=== PATIENT | male | born 1985 | race Caucasian/White ===

== ENCOUNTER 2017-05-24 18:58 | Emergency (ER) | payer OTHER ==
[~2017-05-24] VITALS: Ht 177.8 cm; Wt 56.7 kg
[~2017-05-24 18:58] MED LIST: AMOX-277 PO; MECL-87 PO; PRO125RS PO
[2017-05-24 19:14] VITALS: BP 141/84
[2017-05-24] MEDS ORDERED: IBUPROFEN 600 MG TAB PO ONE (21:00)
[2017-05-24] MEDS ORDERED: CYCLOBENZAPRINE HCL 10 MG TAB PO ONE (21:00)
== END 2017-05-24 21:21 | disposition home or self-care (01) ==
LOC: ER 19:08
DX: S29.019A Strain of muscle and tendon of unspecified wall of thorax, initial encounter (principal); K21.9 Gastro-esophageal reflux disease without esophagitis; F17.210 Nicotine dependence, cigarettes, uncomplicated; F12.10 Cannabis abuse, uncomplicated; X58.XXXA Exposure to other specified factors, initial encounter; Y93.89 Activity, other specified; Y99.8 Other external cause status; Y92.89 Other specified places as the place of occurrence of the external cause
CPT/HCPCS: 72080

== ENCOUNTER 2018-06-12 11:22 | Emergency (ER) | payer OTHER ==
[~2018-06-12] VITALS: Ht 175.3 cm; Wt 50.8 kg
[2018-06-12 11:43] VITALS: BP 133/93
[2018-06-12] MEDS ORDERED: KETOROLAC TROMETH 60MG/2ML VIAL IM ONE (12:15)
[2018-06-12] MEDS ORDERED: KETOROLAC TROMETH 30 MG/ML 1ML VIAL IM ONE (12:15)
== END 2018-06-12 12:40 | disposition home or self-care (01) ==
LOC: ER 11:25
DX: K08.89 Other specified disorders of teeth and supporting structures (principal); G89.29 Other chronic pain; F12.90 Cannabis use, unspecified, uncomplicated; F17.210 Nicotine dependence, cigarettes, uncomplicated
CPT/HCPCS: 96372; 99283; J1885

== ENCOUNTER 2022-03-25 11:48 | Emergency (ER) | payer MEDICAID ==
[~2022-03-25] VITALS: Ht 175.3 cm; Wt 57.0 kg
[~2022-03-25 11:48] MED LIST changes: -MECL-87 PO; +MECL25TA18 PO
[2022-03-25 13:35] VITALS: BP 123/86
[2022-03-25] MEDS ORDERED: IBUP600T27 PO (14:00)
== END 2022-03-25 14:05 | disposition home or self-care (01) ==
LOC: ER 11:48
DX: S80.11XA Contusion of right lower leg, initial encounter (principal); K21.9 Gastro-esophageal reflux disease without esophagitis; F17.210 Nicotine dependence, cigarettes, uncomplicated; Z79.899 Other long term (current) drug therapy; W22.8XXA Striking against or struck by other objects, initial encounter; Y93.89 Activity, other specified; Y92.89 Other specified places as the place of occurrence of the external cause; Y99.8 Other external cause status
CPT/HCPCS: 73590

== ENCOUNTER 2022-07-23 15:16 | Emergency (ER) | payer MEDICAID ==
[~2022-07-23] VITALS: Ht 175.3 cm; Wt 55.5 kg
[~2022-07-23 15:16] MED LIST changes: +IBUP600T27 PO
[2022-07-23 16:16] VITALS: BP 136/76
[2022-07-23] MEDS ORDERED: LIDOCAINE 1% HCL (LOCAL ANESTH.) INJ 20ML MDV IJ ONE (17:00)
== END 2022-07-23 17:31 | disposition home or self-care (01) ==
LOC: ER 15:16
DX: S61.210A Laceration without foreign body of right index finger without damage to nail, initial encounter (principal); K21.9 Gastro-esophageal reflux disease without esophagitis; F17.210 Nicotine dependence, cigarettes, uncomplicated; F12.10 Cannabis abuse, uncomplicated; Z88.6 Allergy status to analgesic agent; W26.8XXA Contact with other sharp object(s), not elsewhere classified, initial encounter; Y93.89 Activity, other specified; Y92.89 Other specified places as the place of occurrence of the external cause; Y99.8 Other external cause status
CPT/HCPCS: 12001

== ENCOUNTER 2022-07-30 08:57 | Emergency (ER) | payer MEDICAID ==
[~2022-07-30] VITALS: Ht 172.7 cm; Wt 54.8 kg
[2022-07-30 09:29] VITALS: BP 130/83
== END 2022-07-30 21:14 | disposition home or self-care (01) ==
LOC: ER 09:00
DX: S61.210D Laceration without foreign body of right index finger without damage to nail, subsequent encounter (principal); K21.9 Gastro-esophageal reflux disease without esophagitis; F17.210 Nicotine dependence, cigarettes, uncomplicated; F12.90 Cannabis use, unspecified, uncomplicated; Z79.899 Other long term (current) drug therapy; X58.XXXD Exposure to other specified factors, subsequent encounter

== ENCOUNTER 2025-01-03 06:47 | Emergency (ER) | payer MEDICAID ==
[~2025-01-03] VITALS: Ht 175.3 cm; Wt 55.0 kg
[~2025-01-03 06:47] MED LIST changes: -AMOX-277 PO; +AMOX875T4 PO; +IBUP-1454 PO; -IBUP600T27 PO; +MECL-90 PO; -MECL25TA18 PO
[2025-01-03 07:28] VITALS: BP 129/82; PULSE 79; RESP 18; TEMP 99.4; O2SAT 97
[2025-01-03] MEDS ORDERED: IBUP1TAB5 PO (08:04)
[2025-01-03] MEDS ORDERED: PROM1SOL4 PO (08:04)
[2025-01-03] MEDS ORDERED: BENZ100C97 PO (08:04)
[2025-01-03] MEDS ORDERED: AZIT-43 PO (08:04)
--- NOTE | 2025-01-03 08:04 | ED.PDOC ---
Eye-HPI HPI Comments A 39 year old male presents to the ED c/o flu-like symptoms. Patient states he has been experiencing a dry cough, chills, body aches, and sore throat for the past 4 days. Patient reports he has tried [id number] medications with no improvement in his symptoms.Denies fever, SOB, chest pain, abdominal pain, nausea, vomiting, diarrhea, dizziness, vision changes, or numbness/tingling of extremities. No other symptoms or modifying factors reported at this time. Patient is alert and oriented x4 and has a stable gait. Chief Complaint: Sore Throat Time Seen by MD: 06:57 Primary Care Provider: ? Reviewed Notes: Nurses Notes, Medications, Allergies Allergies: Coded Allergies: NO KNOWN ALLERGIES (Unverified , 07/23/22) Home Meds Active Scripts Ibuprofen Micronized (Ibuprofen) 600 Mg Tab, 600 MG PO Q8HPRN PRN for 10 Days, #30 TAB 0 Refills Prov:JATIN MEJIA NP 01/03/25 Promethazine-Dm (Promethazine Dm 6.25-15 mg/5Ml) 1 Oxana Oxana, 5 ML PO TIDPRN PRN for 10 Days, #150 ML 0 Refills Prov:JATIN MEJIA EXTERNAL RELATIONS MANAGER 01/03/25 Benzonatate (Benzonatate) 100 Mg Cap, 1 CAP PO TID for 10 Days, #30 CAP 0 Refills Prov:JATIN MEJIA EXTERNAL RELATIONS MANAGER 01/03/25 Azithromycin (Azithromycin) 250 Mg Tab, 250 MG PO DAILY MDD 500 for 5 Days, #6 TAB 0 Refills 2 TABLETS ORALLY ON DAY ONE, THEN 1 TABLET ORALLY DAILY FOR 4 DAYS Prov:JATIN MEJIA NP 01/03/25 Ibuprofen (Ibuprofen) 600 Mg Tab, 600 MG PO TID, #30 TAB Prov:SURAJ ROSALES 03/25/22 Reported Medications Meclizine Hcl (Meclizine Hcl) 25 Mg Tab, 25 MG PO, #30 08/22/14 Promethazine Hcl (Promethegan) 12.5 Mg Sup, 12.5 MG PO Q6HP PRN for FOR COUGH, #180 08/22/14 Amoxicillin & Pot Clavulanate (Amoxicillin/Potassium Cla) 875 Mg Tab, 875 MG PO BID, #20 08/22/14 Information Source: Patient Mode of Arrival: Ambulatory Timing: Days Duration: Since onset, Days Prehospital treatment: None Quality: Pain, Red Lids: Normal Conjunctiva: Normal Cornea: Normal Pupils: Normal EOM: Normal Fundus: Normal Slit lamp exam: Normal Anterior chamber: Normal Mouth Location: Pharynx Mouth: Normal ENT Ear Exam: Normal, Normal, Normal Nose: Normal Sinuses: Normal Oropharynx: Red Onset: Spontaneous Throat Exposed to: None History of: None Last Tetanus: Unknown Modifying factors: Nothing Associated signs and symptoms: Chills, Nasal Symptoms, Sore Throat Past Medical History PAST MEDICAL HISTORY: GERD, PUD Surgical History: Denies all surgeries Family History Family History: Reviewed,noncontributory to illness Social History Smoker: Cigarettes, Less Than 1 Pack/Day Alcohol: Occasionally Drugs: Marijuana Lives In: Home Constitutional: reports: chills, fatigue; denies: diaphoresis, fever, malaise, sweats, weakness, others EENTM: reports: nose congestion, throat pain; denies: blurred vision, double vision, ear bleeding, ear discharge, ear drainage, ear pain, ear ringing, eye pain, eye redness, hearing loss, mouth pain, mouth swelling, nasal discharge, nose bleeding, nose pain, photophobia, tearing, throat swelling, voice changes, others Respiratory: reports: cough; denies: hemoptysis, orthopnea, SOB at rest, shortness of breath, SOB with excertion, stridor, wheezing, others Cardiovascular: denies: chest pain, dizzy spells, diaphoresis, Dyspnea on exertion, edema, irregular heart beat, left arm pain, lightheadedness, palpitations, PND, syncope, others Gastrointestinal: denies: abdomen distended, abdominal pain, blood streaked bowels, constipated, diarrhea, dysphagia, difficulty swallowing, hematemesis, melena, nausea, poor appetite, poor fluid intake, rectal bleeding, rectal pain, vomiting, others Genitourinary: denies: burning, dysuria, flank pain, frequency, hematuria, incontinence, penile discharge, penile sore, pain, testicle pain, testicle swelling, urgency, others Neurological: denies: dizziness, fainting, headache, left sided numbness, left sided weakness, numbness, paresthesia, pre-existing deficit, right sided numbness, right sided weakness, seizure, speech problems, tingling, tremors, weakness, others Musculoskeletal: reports: muscle pain; denies: back pain, gout, joint pain, joint swelling, muscle stiffness, neck pain, others Integumetry: denies: bruises, change in color, change in hair/nails, dryness, laceration, lesions, lumps, rash, wounds, others Allergic/Immunocompromised: denies: Difficulty Healing, Frequent Infections, Hives, Itching, others Hematologic/Lymphatic: denies: anemia, blood clots, easy bleeding, easy bruising, swollen glands, others Endocrine: denies: excessive hunger, excessive sweating, excessive thirst, excessive urination, flushing, intolerance to cold, intolerance to heat, unexplained weight gain, unexplained weight loss, others Psychiatric: denies: anxiety, bipolar disorder, depression, hopeless, panic disorder, schizophrenia, sleepless, suicidal, others All Other Systems: Reviewed and Negative Physical Exam General Appearance: No Apparent Distress, Normal HEENT: Pharyngeal Erythema, TMs Normal, Other (MMM, uvuala mildine, no airway obstruction, no drooling, Bilateral tonsils 1+) Neck: Full Range of Motion, Non-Tender, Normal, Normal Inspection Respiratory: Chest Non-Tender, Lungs Clear, No Accessory Muscle Use, No Respiratory Distress, Normal Breath Sounds Cardiovascular: No Edema, No JVD, No Murmur, No Gallop, Normal Peripheral Pulses, Regular Rate/Rhythm Breast Exam: Deferred Gastrointestinal: No Organomegaly, Non Tender, No Pulsatile Mass, Normal Bowel Sounds, Soft Genitalia: Deferred Pelvic: Deferred Rectal: Deferred Extremities: No calf tenderness, Normal capillary refill, Normal inspection, Normal range of motion, Non-tender, No pedal edema Musculoskeletal : Apperance: Normal Neurologic: Alert, project development engineer II-XII nml as Tested, No Motor Deficits, Normal Affect, Normal Mood, No Sensory Deficits Cerebellar Function: Normal Reflexes: Normal Skin: Dry, Normal Color, Warm Lymphatic: No Adenopathy Was a procedure done? Was a procedure done?: No EENT DIFF Eye: N/A Ear: Otitis Media, Pharyngitis, Sinusitis Nose: N/A Mouth: Other Sore Throat: Pharyngitis, Streptococcal, Viral Pharyngitis, URI X-Ray, Labs, Meds, VS Vital Signs Date Time Temp Pulse Resp B/P (MAP) Pulse Ox O2 Delivery O2 Flow Rate FiO2 01/03/25 07:28 99.4 79 18 129/82 (98) 97 99.4 X-Ray, Labs, Meds, VS Comment The patient is overall well-appearing nontoxic on exam. On physical exam, respirations even and unlabored, clear to auscultation bilaterally. Oxygen stable on room air. Did not have any focal lung findings and therefore chest x-ray was not indicated during this exam Low suspicion of strep pharyngitis given physical exam findings and patient's pr esenting symptoms No signs of meningismus on exam Overall, the patient is well hydrated and nontoxic. Plan for Empiric tx. The patient was able to tolerate p.o. intake in the ED. at this time, patient is safe for discharge home. The exam findings and plan discussed. We will discharge home with PCP follow up and strict return precautions. Recommended vitamin C, rest, handwashing, and symptomatic care. Expect 2-week course with possibly of cough lingering up to 6 weeks. Nonpharmacological remedies for fluids has been recommended as well External Medical Records Reviewed: Independent historians: Pt Social Determinants of Health: None Labs Ordered: None Reviewed and interpreted results: None Radiology imaging ordered: None Treatments ordered: None Procedures Performed: None Critical Care Time: None I have discussed the patient with the attending physician Dr. Garsia and he agrees with the patient's plan of care and disposition. Based on history of present illness, and physical exam, patient will be discharged home. Discussed plan for discharge home with Rx [Azithromycin, Tessalon, Ibuprofen 600 mg and Phenergan DM]. Medication warnings given. Shared Decision Making: Patient instructed to follow up with primary care provi zack in 1-2 days for re-evaluation of symptoms. Patient verbalizes understanding to return to ED for new or worsening symptoms or if follow up with PCP cannot be obtained. Patient feels comfortable going home at this time. All questions addressed at time of discharge. Time of 1ST Reevaluation: 08:00 Reevaluation 1ST: Improved Patient Education/Counseling: Diagnosis, Treatment, Need For Follow Up Family Education/Counseling: Diagnosis, Treatment, Need For Follow Up Departure 1 Departure Time of Disposition: 08:01 Impression: Primary Impression: Pharyngitis Qualified Codes: J02.9 - Acute pharyngitis, unspecified Disposition: 01 HOME / SELF CARE / HOMELESS Condition: Fair Additional Instructions: Follow up with PCP in 1-2 days. Take medications as prescribed. Return to the ED for any new or worsening symptoms. e-Prescriptions Ibuprofen Micronized (Ibuprofen) 600 Mg Tab 600 MG PO Q8HPRN PRN for 10 Days, #30 TAB 0 Refills Prov: JATIN MEJIA NP 01/03/25 Promethazine-Dm (Promethazine Dm 6.25-15 mg/5Ml) 1 Oxana Oxana 5 ML PO TIDPRN PRN for 10 Days, #150 ML 0 Refills Prov: JATIN MEJIA NP 01/03/25 Benzonatate (Benzonatate) 100 Mg Cap 1 CAP PO TID for 10 Days, #30 CAP 0 Refills Prov: JATIN MEJIA NP 01/03/25 Azithromycin (Azithromycin) 250 Mg Tab 250 MG PO DAILY MDD 500 for 5 Days, #6 TAB 0 Refills 2 TABLETS ORALLY ON DAY ONE, THEN 1 TABLET ORALLY DAILY FOR 4 DAYS Prov: JATIN MEJIA NP 01/03/25 Discharged With: Self Critical Care Note Critical Care Time?: No Stability Stability form required: No Heart Score Heart Score: Heart Score Response (Comments) Value History N/A 0 EKG N/A 0 Age N/A 0 Risk Factors N/A 0 Troponin N/A 0 Total 0 I personally scribed for JATIN MEJIA NP ([email or web address]) on 01/03/25 at 08:14. Electronically submitted by Sonu Bardales ([email or web address]). JATIN MEJIA NP Jan 03, 2025 08:04
== END 2025-01-03 08:21 | disposition home or self-care (01) ==
LOC: ER 06:48
DX: J02.9 Acute pharyngitis, unspecified (principal); F17.210 Nicotine dependence, cigarettes, uncomplicated; K21.9 Gastro-esophageal reflux disease without esophagitis; F10.90 Alcohol use, unspecified, uncomplicated; F19.90 Other psychoactive substance use, unspecified, uncomplicated; Z87.11 Personal history of peptic ulcer disease; Z79.1 Long term (current) use of non-steroidal anti-inflammatories (NSAID); Z79.899 Other long term (current) drug therapy; Y90.9 Presence of alcohol in blood, level not specified